=== PATIENT | male | born 1995 | race Caucasian/White ===

== ENCOUNTER 2022-01-22 18:08 | Emergency (ER) | payer BC ==
[~2022-01-22] VITALS: Ht 172.7 cm; Wt 63.5 kg
[2022-01-22] MEDS ORDERED: SODIUM CHLORIDE 0.9% 1000ML 1,000 ML IV SCH (18:45)
[2022-01-22] MEDS ORDERED: FAMOTIDINE 20 MG/2 ML VIAL IV STA (18:45)
[2022-01-22] MEDS ORDERED: ONDANSETRON HCL INJ 2MG/ML 2ML 2 MG/ML VIAL IV STA (18:45)
[2022-01-22] MEDS ORDERED: KETOROLAC TROMETHAMINE 30 MG/ML VIAL IV STA (18:46)
[2022-01-22] MEDS ORDERED: KETOROLAC TROMETHAMINE 30 MG/ML VIAL ONE (19:09)
[2022-01-22] MEDS ORDERED: ONDANSETRON HCL INJ 2MG/ML 2ML 2 MG/ML VIAL ONE (19:09)
[2022-01-22] MEDS ORDERED: FAMOTIDINE 20 MG/2 ML VIAL IV ONE (19:09)
[2022-01-22] MEDS ORDERED: SODIUM CHLORIDE 0.9% 1000ML 1,000 ML ONE (19:09)
[2022-01-22] MEDS ORDERED: HALOPERIDOL LACTATE 5 MG/ML VIAL ONE (21:17)
[2022-01-22] MEDS ORDERED: PROMETHAZINE HC25 M1 PO (21:19)
[2022-01-22] MEDS ORDERED: PANTOPRAZOLE SO40 MG PO (21:19)
[2022-01-22] MEDS ORDERED: DICYCLOMINE HCL20 MG PO (21:19)
== END 2022-01-22 21:42 | disposition home or self-care (01) ==
LOC: FSED 18:32 → EDSEX 18:32 → FSED 21:42
DX: R11.2 Nausea with vomiting, unspecified (principal); K29.70 Gastritis, unspecified, without bleeding; R10.30 Lower abdominal pain, unspecified; E11.65 Type 2 diabetes mellitus with hyperglycemia; F12.10 Cannabis abuse, uncomplicated
CPT/HCPCS: 71046; 74177; 80048; 80076; 81003; 85025; 99284; J1630; J1885; J2405; J7030

== ENCOUNTER → 2022-05-02 | Outpatient (CLI) | payer BC ==
[~2022-05-02] MED LIST: DICYCLOMINE HCL20 MG PO; PANTOPRAZOLE SO40 MG PO; PROMETHAZINE HC25 M1 PO
== END ==
LOC: NM 08:49
PROVIDERS: ATTEND Internal Medicine Endocrinology, Diabetes & Metabolism
DX: R11.15 Cyclical vomiting syndrome unrelated to migraine (principal); R11.0 Nausea
CPT/HCPCS: 78264; A9541

== ENCOUNTER 2022-09-19 14:33 | Emergency (ER) | payer BC ==
[~2022-09-19] VITALS: Ht 167.6 cm; Wt 82.2 kg
[2022-09-19] MEDS ORDERED: SODIUM CHLORIDE 0.9% 1000ML 1,000 ML IV STA (15:20)
[2022-09-19] MEDS ORDERED: TRAZODONE HCL50 MG PO (15:22)
[2022-09-19] MEDS ORDERED: SERTRALINE HCL50 MG PO (15:22)
[2022-09-19] MEDS ORDERED: TRESIBA100 UNIT/1 (15:22)
[2022-09-19] MEDS ORDERED: NAUZENE TABLET1 EACH (15:22)
[2022-09-19] MEDS ORDERED: METFORMIN HCL1000 M1 (15:22)
[2022-09-19] MEDS ORDERED: NEURONTIN100 MG PO (15:22)
[2022-09-19] MEDS ORDERED: FAMOTIDINE 20 MG/2 ML VIAL IV STA (15:22)
[2022-09-19] MEDS ORDERED: ONDANSETRON HCL INJ 2MG/ML 2ML 2 MG/ML VIAL IV STA ×2 (15:30→17:48)
[2022-09-19] MEDS ORDERED: FAMOTIDINE 20 MG/2 ML VIAL IV ONE (15:32)
[2022-09-19] MEDS ORDERED: ONDANSETRON HCL INJ 2MG/ML 2ML 2 MG/ML VIAL ONE ×2 (15:32→17:49)
[2022-09-19] MEDS ORDERED: SODIUM CHLORIDE 0.9% 1000ML 1,000 ML ONE (15:32)
[2022-09-19] MEDS ORDERED: GOLYTELY SOLU4000 M1 PO (17:15)
[2022-09-19] MEDS ORDERED: FLEET ENEMA133 ML PR (17:15)
[2022-09-19] MEDS ORDERED: ONDANSETRON ODT4 MG PO (17:36)
[2022-09-19] MEDS ORDERED: Morphine 4mg INJECTION 4 MG/ML INJ IV STA (17:48)
[2022-09-19] MEDS ORDERED: Morphine 4mg INJECTION 4 MG/ML INJ ONE (17:49)
[2022-09-19] MEDS ORDERED: Morphine 4mg INJECTION 4 MG/ML INJ IV PRN (18:00)
== END 2022-09-19 19:15 | disposition home or self-care (01) ==
LOC: FSED 14:58
DX: K56.41 Fecal impaction (principal); E11.65 Type 2 diabetes mellitus with hyperglycemia; F41.9 Anxiety disorder, unspecified; F32.A Depression, unspecified; Z20.822 Contact with and (suspected) exposure to COVID-19
CPT/HCPCS: 74177; 80048; 80076; 80307; 81003; 85025; 96374; 96375; 96376; 99284; J2270; J2405; J7030; U0002

== ENCOUNTER 2023-05-27 15:14 | Inpatient (IN) | payer BC ==
[~2023-05-27] VITALS: Ht 170.2 cm; Wt 86.2 kg
[~2023-05-27 15:14] MED LIST changes: +AMOX TR-K CLV1 EAC2 PO; +FLEET ENEMA133 ML PR; +GOLYTELY SOLU4000 M1 PO; +LISINOPRIL5 MG PO; +MAALOX MAXIMUM355 ML PO; +METFORMIN HCL1000 M1 PO; +NAUZENE TABLET1 EACH; +NEURONTIN100 MG PO; +OMEPRAZOLE20 M1 PO; +ONDANSETRON ODT4 MG PO; +PHENERGAN SUPP25 MG PR; +SERTRALINE HCL50 MG PO; +TRAZODONE HCL50 MG PO; +TRESIBA100 UNIT/1 SC; +TYLENOL325 MG PO; +ULTRAM 50MG50 MG PO
[2023-05-27] MEDS ORDERED: SODIUM CHLORIDE 0.9% 1000ML 1,000 ML IV STA (15:24)
[2023-05-27] MEDS ORDERED: KETOROLAC TROMETHAMINE 30 MG/ML VIAL IV STA (15:24)
[2023-05-27] MEDS ORDERED: ONDANSETRON HCL INJ 2MG/ML 2ML 2 MG/ML VIAL IV ONE (15:30)
[2023-05-27] MEDS ORDERED: FAMOTIDINE 20 MG/2 ML VIAL IV ONE ×2 (15:30→15:46)
[2023-05-27] MEDS ORDERED: PROMETHAZINE 25MG/ NS 50ML (IV) IV ONE (15:45)
[2023-05-27] MEDS ORDERED: PROMETHAZINE HCL (IM) 25 MG/ML VIAL IM ONE (15:46)
[2023-05-27] MEDS ORDERED: KETOROLAC TROMETHAMINE 30 MG/ML VIAL ONE (15:46)
[2023-05-27] MEDS ORDERED: SODIUM CHLORIDE 0.9% 1000ML 1,000 ML ONE (15:46)
[2023-05-27] MEDS ORDERED: DEXTROSE 50% SYRINGE 50 ML IV PRN (16:30)
[2023-05-27] MEDS ORDERED: ENALAPRILAT IV INJ 1.25 MG/ML VIAL IV PRN (16:30)
[2023-05-27] MEDS ORDERED: INSULIN REGULAR, HUMAN 100 UNIT/1 ML IV ONE (16:30)
[2023-05-27] MEDS ORDERED: ZOLPIDEM TARTRATE 5 MG TAB PO PRN (16:30)
[2023-05-27] MEDS ORDERED: DIPHENHYDRAMINE HCL INJ 50 MG/ML VIAL IV PRN (16:30)
[2023-05-27] MEDS ORDERED: CLONIDINE HCL 0.2 MG TAB PO PRN (16:30)
[2023-05-27] MEDS ORDERED: FAMOTIDINE 20 MG/2 ML VIAL IV SCH (17:00)
[2023-05-27 18:06] VITALS: BP 135/94; PULSE 76; RESP 19; TEMP 98.6; O2SAT 99
[2023-05-27] MEDS ORDERED: OMEPRAZOLE20 MG (18:49)
[2023-05-27] MEDS: SODIUM CHLORIDE 0.45% 1,000 ML IV SCH (18:58)
[2023-05-27] MEDS: ENOXAPARIN SOD INJ 40 MG/0.4 ML SYR SC SCH (18:59)
[2023-05-27] MEDS: INSULIN REGULAR, HUMAN 100 UNIT/1 ML SQ SCH ×2 (19:00→21:16)
[2023-05-27 20:00] VITALS: BP 142/94; PULSE 83; RESP 18; TEMP 98.2; O2SAT 100
[2023-05-27 20:42] VITALS: BP 142/94; PULSE 83; RESP 18; TEMP 98.2; O2SAT 83
[2023-05-27 21:00] VITALS: BP 142/94; PULSE 83; RESP 18; TEMP 98.2; O2SAT 100
[2023-05-27 21:59] VITALS: BP 142/94; PULSE 83; RESP 18; TEMP 98.2; O2SAT 100
[2023-05-28] VITALS (7 sets, daily range): BP systolic 112–127; BP diastolic 75–92; PULSE 66–110; RESP 16–20; TEMP 97.3–99.1; O2SAT 98–100
[2023-05-28] MEDS: SODIUM CHLORIDE 0.45% 1,000 ML IV SCH (01:43)
[2023-05-28] MEDS: ACETAMINOPHEN 325 MG TAB PO PRN ×3 (04:10→23:37)
[2023-05-28] MEDS: ONDANSETRON HCL INJ 2MG/ML 2ML 2 MG/ML VIAL IV PRN ×3 (05:44→23:38)
[2023-05-28 06:52] LABS: BASOPHILS % 0.4 % (0.0-1.0); EOSINOPHILS # (AUTO) 0.1 (0.0-0.4); EOSINOPHILS % 1.1 % (0.0-6.0); HEMATOCRIT 42.9 % (38.2-49.6); HEMOGLOBIN 15.2 g/dL (14.0-18.0); LYMPHOCYTES # (AUTO) 2.2 (1.0-3.2); LYMPHOCYTES % 21.1 % (18.0-39.1); MEAN CORPUSCULAR HEMOGLOBIN 30.6 pg (28-32); MEAN CORPUSCULAR HGB CONC 35.4 g/dL (31-35); MEAN CORPUSCULAR VOLUME 86.5 fL (81-99); MONOCYTES # (AUTO) 0.8 (0.2-0.8); MONOCYTES % 8.1 % (4.4-11.3); NEUTROPHILS # (AUTO) 7.1 (2.1-6.9); NEUTROPHILS % 68.9 % (38.7-80.0); PLATELET COUNT 239 x10e3/uL (140-360); RED BLOOD COUNT 4.96 x10e6/uL (4.3-5.7); RED CELL DISTRIBUTION WIDTH 12.2 % (11.7-14.4); WHITE BLOOD COUNT 10.26 x10e3/uL (4.8-10.8)
[2023-05-28 07:21] LABS: ANION GAP 17.5 mmol/L (8-16); CALCIUM 8.8 mg/dL (8.4-10.2); CREATININE, SERUM 0.75 mg/dL (0.72-1.25); POTASSIUM 3.5 mmol/L (3.5-5.1)
[2023-05-28] MEDS: INSULIN REGULAR, HUMAN 100 UNIT/1 ML SQ SCH (07:30)
[2023-05-28] MEDS ORDERED: ACETAMINOPHEN 325 MG TAB PO PRN (07:45)
[2023-05-28] MEDS ORDERED: DEXTROSE 50% SYRINGE 50 ML IV PRN (07:45)
[2023-05-28] MEDS ORDERED: IOPAMIDOL 370 MG/ML 100 ML INFUS..BTL INJ ONE (09:12)
[2023-05-28] MEDS ORDERED: SODIUM CHLORIDE 0.9% 100 ML ONE (09:12)
[2023-05-28] MEDS: SERTRALINE HCL 50 MG TAB PO SCH (09:13)
[2023-05-28] MEDS: LISINOPRIL 2.5 MG TAB PO SCH (09:14)
[2023-05-28] MEDS: PROMETHAZINE 12.5MG/ NACL 0.9% 12.5 MG/50 ML BAG IV PRN ×2 (09:14→21:12)
[2023-05-28] MEDS: DICYCLOMINE HCL 20 MG TAB PO SCH ×2 (12:37→17:36)
[2023-05-28] MEDS: METOCLOPRAMIDE HCL 10 MG TAB PO SCH ×3 (12:37→21:10)
[2023-05-28] MEDS: INSULIN LISPRO 100 UNIT/1 ML 3ML VIAL SQ SCH ×5 (12:39→21:00)
[2023-05-28] MEDS: ENOXAPARIN SOD INJ 40 MG/0.4 ML SYR SC SCH (17:36)
[2023-05-28] MEDS ORDERED: INSULIN GLARGINE 100 UNITS/ML VIAL SQ SCH (21:00)
[2023-05-28] MEDS: GABAPENTIN 100 MG CAP PO SCH (21:10)
[2023-05-28] MEDS: TRAMADOL HCL 50 MG TAB PO PRN (21:29)
[2023-05-29] VITALS (7 sets, daily range): BP systolic 112–150; BP diastolic 71–107; PULSE 74–93; RESP 18–20; TEMP 97.2–98.4; O2SAT 98–100
[2023-05-29] MEDS: ONDANSETRON HCL INJ 2MG/ML 2ML 2 MG/ML VIAL IV PRN ×2 (06:30→20:31)
[2023-05-29] MEDS: TRAMADOL HCL 50 MG TAB PO PRN ×2 (06:30→20:30)
[2023-05-29] MEDS ORDERED: KCL 40MEQ/0.9% SOD CHL 1,000 ML IV ONE (08:30)
[2023-05-29] MEDS: LISINOPRIL 2.5 MG TAB PO SCH (08:54)
[2023-05-29] MEDS: SERTRALINE HCL 50 MG TAB PO SCH (08:54)
[2023-05-29] MEDS: METOCLOPRAMIDE HCL 10 MG/2ML VIAL IV SCH ×3 (08:54→16:46)
[2023-05-29] MEDS: INSULIN LISPRO 100 UNIT/1 ML 3ML VIAL SQ SCH ×7 (08:59→22:04)
[2023-05-29] MEDS ORDERED: NICOTINE 21 MG/EA PATCH TOP SCH (09:00)
[2023-05-29] MEDS ORDERED: LIDOCAINE HCL 2% LOCAL INJ 5 ML SDV VIAL INJ ONE (13:02)
[2023-05-29] MEDS ORDERED: DEXMEDETOMIDINE HCL 200 MCG/2 ML VIAL ONE (13:02)
[2023-05-29] MEDS ORDERED: PROPOFOL IV EMULSION 10 MG/ML 50 ML VIAL IV ONE (13:02)
[2023-05-29] MEDS ORDERED: MIDAZOLAM HCL 2 MG/2 ML VIAL ONE (13:08)
[2023-05-29] MEDS ORDERED: FENTANYL CITRATE/PF 100MCG/2 ML INJ ONE (13:08)
[2023-05-29 16:22] LABS: ANION GAP 14.8 mmol/L (8-16); CALCIUM 9.1 mg/dL (8.4-10.2); CREATININE, SERUM 0.87 mg/dL (0.72-1.25); POTASSIUM 3.8 mmol/L (3.5-5.1)
[2023-05-29] MEDS: ENOXAPARIN SOD INJ 40 MG/0.4 ML SYR SC SCH (16:46)
[2023-05-29 16:54] LABS: FREE T4 (FREE THYROXINE) 1.31 ng/dL (0.8-1.8); THYROID STIMULATING HORMONE 1.368 uIU/mL (0.350-4.940)
[2023-05-29] MEDS: GABAPENTIN 100 MG CAP PO SCH (20:30)
[2023-05-29] MEDS ORDERED: INSULIN GLARGINE 100 UNITS/ML VIAL SQ SCH (21:00)
[2023-05-30] VITALS (7 sets, daily range): BP systolic 110–150; BP diastolic 67–107; PULSE 66–94; RESP 18; TEMP 98.3–98.9; O2SAT 100
[2023-05-30] MEDS: ONDANSETRON HCL INJ 2MG/ML 2ML 2 MG/ML VIAL IV PRN ×3 (05:13→22:22)
[2023-05-30 05:48] LABS: BASOPHILS % 0.5 % (0.0-1.0); EOSINOPHILS # (AUTO) 0.2 (0.0-0.4); EOSINOPHILS % 1.7 % (0.0-6.0); HEMATOCRIT 45.2 % (38.2-49.6); HEMOGLOBIN 16.1 g/dL (14.0-18.0); LYMPHOCYTES # (AUTO) 2.9 (1.0-3.2); LYMPHOCYTES % 32.6 % (18.0-39.1); MEAN CORPUSCULAR HEMOGLOBIN 30.3 pg (28-32); MEAN CORPUSCULAR HGB CONC 35.6 g/dL (31-35); MEAN CORPUSCULAR VOLUME 85.1 fL (81-99); MONOCYTES # (AUTO) 0.5 (0.2-0.8); MONOCYTES % 5.7 % (4.4-11.3); NEUTROPHILS # (AUTO) 5.2 (2.1-6.9); NEUTROPHILS % 59.2 % (38.7-80.0); PLATELET COUNT 265 x10e3/uL (140-360); RED BLOOD COUNT 5.31 x10e6/uL (4.3-5.7); RED CELL DISTRIBUTION WIDTH 12.4 % (11.7-14.4); WHITE BLOOD COUNT 8.73 x10e3/uL (4.8-10.8)
[2023-05-30 06:11] LABS: ANION GAP 15.6 mmol/L (8-16); CALCIUM 9.2 mg/dL (8.4-10.2); CREATININE, SERUM 0.81 mg/dL (0.72-1.25); POTASSIUM 3.6 mmol/L (3.5-5.1)
[2023-05-30 06:42] LABS: MAGNESIUM 1.8 MG/DL (1.3-2.1); PHOSPHORUS 2.9 MG/DL (2.3-4.7)
[2023-05-30] MEDS: LISINOPRIL 2.5 MG TAB PO SCH (09:49)
[2023-05-30] MEDS: SERTRALINE HCL 50 MG TAB PO SCH (09:49)
[2023-05-30] MEDS: SUCRALFATE 1 GM TAB PO SCH ×4 (09:50→20:31)
[2023-05-30] MEDS: METOCLOPRAMIDE HCL 10 MG/2ML VIAL IV SCH ×3 (09:50→17:04)
[2023-05-30] MEDS: INSULIN LISPRO 100 UNIT/1 ML 3ML VIAL SQ SCH ×6 (09:51→20:32)
[2023-05-30] MEDS: ENOXAPARIN SOD INJ 40 MG/0.4 ML SYR SC SCH (17:04)
[2023-05-30] MEDS: PROMETHAZINE 12.5MG/ NACL 0.9% 12.5 MG/50 ML BAG IV PRN (20:18)
[2023-05-30] MEDS: INSULIN GLARGINE 100 UNITS/ML VIAL SQ SCH (20:27)
[2023-05-30] MEDS: GABAPENTIN 100 MG CAP PO SCH (20:31)
[2023-05-30] MEDS: Morphine 4mg INJECTION 4 MG/ML INJ IV PRN (22:22)
[2023-05-31] VITALS (8 sets, daily range): BP systolic 102–144; BP diastolic 68–103; PULSE 62–99; RESP 16–18; TEMP 97.7–98.7; O2SAT 96–100
[2023-05-31] MEDS ORDERED: LACTATED RINGER'S 500 ML IV ONE ×4 (02:45→03:00)
[2023-05-31] MEDS: Morphine 4mg INJECTION 4 MG/ML INJ IV PRN ×2 (03:36→13:57)
[2023-05-31] MEDS: METOCLOPRAMIDE HCL 10 MG/2ML VIAL IV SCH ×3 (05:14→16:50)
[2023-05-31] MEDS ORDERED: ONDANSETRON HCL INJ 2MG/ML 2ML 2 MG/ML VIAL IV PRN (07:00)
[2023-05-31] MEDS: SUCRALFATE 1 GM TAB PO SCH ×4 (07:30→20:27)
[2023-05-31] MEDS: INSULIN LISPRO 100 UNIT/1 ML 3ML VIAL SQ SCH ×7 (07:30→20:42)
[2023-05-31] MEDS: LISINOPRIL 2.5 MG TAB PO SCH (08:53)
[2023-05-31] MEDS: SERTRALINE HCL 50 MG TAB PO SCH (09:00)
[2023-05-31] MEDS ORDERED: KETOROLAC TROMETHAMINE 30 MG/ML VIAL IV PRN (09:30)
[2023-05-31] MEDS ORDERED: KETOROLAC TROMETHAMINE 30 MG/ML VIAL IV ONE (10:00)
[2023-05-31] MEDS ORDERED: SODIUM CHLORIDE 0.9% 250ML 250 ML ONE (16:43)
[2023-05-31] MEDS: ENOXAPARIN SOD INJ 40 MG/0.4 ML SYR SC SCH (16:49)
[2023-05-31] MEDS: GABAPENTIN 100 MG CAP PO SCH (20:27)
[2023-05-31] MEDS: INSULIN GLARGINE 100 UNITS/ML VIAL SQ SCH (20:36)
[2023-06-01 00:26] VITALS: BP 131/84; PULSE 73; RESP 18; TEMP 98.3; O2SAT 100
[2023-06-01 04:00] VITALS: BP 117/76; PULSE 98; RESP 17; TEMP 98.6; O2SAT 99
[2023-06-01] MEDS: METOCLOPRAMIDE HCL 10 MG/2ML VIAL IV SCH ×2 (04:59)
[2023-06-01 06:14] LABS: BASOPHILS % 0.4 % (0.0-1.0); EOSINOPHILS # (AUTO) 0.2 (0.0-0.4); EOSINOPHILS % 2.2 % (0.0-6.0); HEMATOCRIT 43.9 % (38.2-49.6); HEMOGLOBIN 15.6 g/dL (14.0-18.0); LYMPHOCYTES # (AUTO) 3.2 (1.0-3.2); LYMPHOCYTES % 38.7 % (18.0-39.1); MEAN CORPUSCULAR HEMOGLOBIN 31.2 pg (28-32); MEAN CORPUSCULAR HGB CONC 35.5 g/dL (31-35); MEAN CORPUSCULAR VOLUME 87.8 fL (81-99); MONOCYTES # (AUTO) 0.7 (0.2-0.8); NEUTROPHILS # (AUTO) 4.1 (2.1-6.9); NEUTROPHILS % 49.2 % (38.7-80.0); PLATELET COUNT 249 x10e3/uL (140-360); RED CELL DISTRIBUTION WIDTH 12.6 % (11.7-14.4); WHITE BLOOD COUNT 8.25 x10e3/uL (4.8-10.8)
[2023-06-01 06:22] LABS: ANION GAP 13.7 mmol/L (8-16); CALCIUM 10.4 mg/dL (8.4-10.2); CREATININE, SERUM 1.05 mg/dL (0.72-1.25); POTASSIUM 3.7 mmol/L (3.5-5.1)
[2023-06-01 07:57] VITALS: BP 118/74; PULSE 66; RESP 18; TEMP 97.7; O2SAT 98
[2023-06-01] MEDS: INSULIN LISPRO 100 UNIT/1 ML 3ML VIAL SQ SCH ×4 (07:57→11:51)
[2023-06-01 08:00] VITALS: BP 118/74; PULSE 66; RESP 18; TEMP 97.7; O2SAT 98
[2023-06-01] MEDS: SUCRALFATE 1 GM TAB PO SCH ×2 (08:01→11:52)
[2023-06-01] MEDS: LISINOPRIL 2.5 MG TAB PO SCH (08:02)
[2023-06-01] MEDS: SERTRALINE HCL 50 MG TAB PO SCH (08:02)
[2023-06-01 08:18] VITALS: BP 118/74; PULSE 66; RESP 18; TEMP 97.7; O2SAT 98
[2023-06-01 11:51] VITALS: BP 117/77; PULSE 90; RESP 19; TEMP 97.7; O2SAT 100
== END 2023-06-01 13:20 | disposition home or self-care (01) | DRG 74 ==
LOC: FSED 15:19 → ERHOLD 16:23 → MED/SURG2 18:01 → OBSVTOIN 05-29 13:50
PROVIDERS: ADMIT Internal Medicine; ATTEND Internal Medicine
PROC: 0DB68ZX Excision of Stomach, Via Natural or Artificial Opening Endoscopic, Diagnostic (ICD-10-PCS; principal; 2023-05-29 14:04)
DX: E10.43 Type 1 diabetes mellitus with diabetic autonomic (poly)neuropathy (principal); E10.10 Type 1 diabetes mellitus with ketoacidosis without coma; K31.84 Gastroparesis; E10.65 Type 1 diabetes mellitus with hyperglycemia; Z79.4 Long term (current) use of insulin; E86.0 Dehydration; K21.9 Gastro-esophageal reflux disease without esophagitis; K29.50 Unspecified chronic gastritis without bleeding; K25.9 Gastric ulcer, unspecified as acute or chronic, without hemorrhage or perforation; K20.90 Esophagitis, unspecified without bleeding; K44.9 Diaphragmatic hernia without obstruction or gangrene; I10 Essential (primary) hypertension; F17.200 Nicotine dependence, unspecified, uncomplicated; K82.8 Other specified diseases of gallbladder; Z79.84 Long term (current) use of oral hypoglycemic drugs; R63.4 Abnormal weight loss; Z68.28 Body mass index [BMI] 28.0-28.9, adult; F32.A Depression, unspecified; Z79.899 Other long term (current) drug therapy
CPT/HCPCS: 0223U; 36415; 43239; 74022; 74177; 78227; 80048; 81003; 82607; 82948; 83036; 83518; 83735; 84100; 84439; 84443; 85025; 87400; 88305; 88342; 96361; 96374; 96376; 99284; A9537; G0378; J1200; J1650; J1815; J1885; J2001; J2250; J2270; J2405; J2550; J2765; J7030; J7050; J7120; Q9967

== ENCOUNTER 2023-11-30 22:35 | Inpatient (IN) | payer BC ==
[~2023-11-30] VITALS: Ht 170.2 cm; Wt 86.2 kg
[~2023-11-30 22:35] MED LIST changes: +OMEPRAZOLE20 MG; +humalog SC
[2023-11-30] MEDS ORDERED: PROMETHAZINE HCL (IM) 25 MG/ML VIAL IM ONE (23:00)
[2023-11-30] MEDS: KETOROLAC TROMETHAMINE 30 MG/ML VIAL IV ONE (23:46)
[2023-11-30] MEDS: FAMOTIDINE 20 MG/2 ML VIAL IV ONE (23:46)
[2023-11-30] MEDS: PROMETHAZINE 25MG/ NS 50ML (IV) IV ONE (23:47)
[2023-11-30] MEDS: DIPHENHYDRAMINE HCL INJ 50 MG/ML VIAL IV ONE (23:52)
[2023-11-30] MEDS: ONDANSETRON HCL INJ 2MG/ML 2ML 2 MG/ML VIAL IV ONE (23:52)
[2023-11-30] MEDS: LACTATED RINGER'S 1,000 ML INJ ONE ×2 (23:52)
[2023-12-01] VITALS (10 sets, daily range): BP systolic 117–178; BP diastolic 80–109; PULSE 78–102; RESP 18; TEMP 98.1–99; O2SAT 98–100
[2023-12-01] MEDS ORDERED: OMEPRAZOLE40 MG PO (00:29)
[2023-12-01] MEDS ORDERED: MAGNESIUM CITR296 ML PO (00:30)
[2023-12-01] MEDS ORDERED: FLEET PEDIA-LAX66 ML RC (00:30)
[2023-12-01] MEDS ORDERED: DEXTROSE 50% SYRINGE 50 ML IV PRN (02:15)
[2023-12-01] MEDS ORDERED: DIPHENHYDRAMINE HCL INJ 50 MG/ML VIAL IV PRN (02:15)
[2023-12-01] MEDS ORDERED: PROMETHAZINE HCL (IM) 25 MG/ML VIAL IM ONE (02:42)
[2023-12-01] MEDS: PROMETHAZINE 25MG/ NS 50ML (IV) IV PRN ×2 (02:46→15:30)
[2023-12-01] MEDS: SODIUM CHLORIDE 0.9% 1000ML 1,000 ML IV SCH (02:46)
[2023-12-01] MEDS: HALOPERIDOL LACTATE 5 MG/ML VIAL IV ONE (05:40)
[2023-12-01] MEDS: ONDANSETRON HCL 4 MG ORAL DISINTEGRATING TAB PO SCH (05:46)
[2023-12-01] MEDS: FAMOTIDINE 20 MG/2 ML VIAL IV SCH (08:14)
[2023-12-01] MEDS ORDERED: ONDANSETRON HCL INJ 2MG/ML 2ML 2 MG/ML VIAL ONE (11:02)
[2023-12-01] MEDS ORDERED: ACETAMINOPHEN 325 MG TAB PO PRN (11:15)
[2023-12-01] MEDS: METOPROLOL TARTRATE INJ 1 MG/ML VIAL IV PRN (11:37)
[2023-12-01] MEDS: DRONABINOL 2.5MG PO SCH (16:55)
[2023-12-01] MEDS: METOCLOPRAMIDE HCL 10 MG/2ML VIAL IV ONE (21:55)
[2023-12-01] MEDS: METOCLOPRAMIDE HCL 10 MG/2ML VIAL IV SCH (23:43)
[2023-12-02 03:17] VITALS: BP 149/97; PULSE 80; RESP 18; TEMP 99.2; O2SAT 100
[2023-12-02 06:35] LABS: BASOPHILS % 0.2 % (0.0-1.0); EOSINOPHILS # (AUTO) 0.1 (0.0-0.4); EOSINOPHILS % 0.6 % (0.0-6.0); HEMATOCRIT 39.6 % (38.2-49.6); HEMOGLOBIN 13.6 g/dL (14.0-18.0); LYMPHOCYTES # (AUTO) 2.1 (1.0-3.2); LYMPHOCYTES % 25.7 % (18.0-39.1); MEAN CORPUSCULAR HEMOGLOBIN 30.9 pg (28-32); MEAN CORPUSCULAR HGB CONC 34.3 g/dL (31-35); MONOCYTES # (AUTO) 0.6 (0.2-0.8); MONOCYTES % 7.3 % (4.4-11.3); NEUTROPHILS # (AUTO) 5.4 (2.1-6.9); PLATELET COUNT 230 x10e3/uL (140-360); RED CELL DISTRIBUTION WIDTH 13.3 % (11.7-14.4); WHITE BLOOD COUNT 8.18 x10e3/uL (4.8-10.8)
[2023-12-02 06:53] VITALS: BP 138/88; PULSE 72; RESP 18; TEMP 98.9; O2SAT 99
[2023-12-02 06:58] LABS: CHOL/HDL RATIO 3.8 (3.9-4.7); MAGNESIUM 1.5 MG/DL (1.3-2.1)
[2023-12-02] MEDS: ONDANSETRON HCL INJ 2MG/ML 2ML 2 MG/ML VIAL IV PRN (07:52)
[2023-12-02 08:38] LABS: ANION GAP 15.9 mmol/L (8-16); CALCIUM 8.8 mg/dL (8.4-10.2); CREATININE, SERUM 0.78 mg/dL (0.72-1.25); POTASSIUM 3.9 mmol/L (3.5-5.1)
[2023-12-02] MEDS: MAGNESIUM/ALUMINUM/SIMETHICONE 30 ML UDC PO PRN (09:16)
[2023-12-02] MEDS: KETOROLAC TROMETHAMINE 30 MG/ML VIAL IV PRN (09:16)
[2023-12-02 11:03] VITALS: BP 138/88; PULSE 72; RESP 18; TEMP 98.9; O2SAT 99
[2023-12-02 12:00] VITALS: BP 160/98; PULSE 77; RESP 22; TEMP 98.9; O2SAT 96
[2023-12-02] MEDS: CHLORDIAZEPOXIDE/CLIDINIUM 1 CAP PO ONE (16:30)
[2023-12-02 17:10] VITALS: BP 143/95; PULSE 95; RESP 14; TEMP 98.2; O2SAT 99
[2023-12-02 20:00] VITALS: BP 149/92; PULSE 77; RESP 20; TEMP 98.9; O2SAT 100
[2023-12-02] MEDS ORDERED: DEXTROSE 50% SYRINGE 50 ML IV PRN (22:00)
[2023-12-02] MEDS: SOD PHOSPHATE/SOD BIPHOSPHATE ENEMA 132 ML BTL PR PRN (22:55)
[2023-12-02] MEDS: MAGNESIUM SULF 1GRAM/DEXTROSE 100 ML IV ONE (22:56)
[2023-12-02] MEDS: CHLORDIAZEPOXIDE/CLIDINIUM 1 CAP PO SCH (22:56)
[2023-12-03] VITALS: BP 137/92; PULSE 77; RESP 21; TEMP 99.3; O2SAT 100
[2023-12-03] MEDS ORDERED: METOCLOPRAMIDE HCL 10 MG/2ML VIAL IV SCH
[2023-12-03] MEDS: MAGNESIUM SULFATE 2GM/50ML 50 ML IV ONE (00:10)
[2023-12-03 04:00] VITALS: BP 123/68; PULSE 75; RESP 20; TEMP 99.2; O2SAT 100
[2023-12-03 05:22] LABS: BASOPHILS % 0.4 % (0.0-1.0); EOSINOPHILS % 0.5 % (0.0-6.0); HEMATOCRIT 41.4 % (38.2-49.6); HEMOGLOBIN 14.4 g/dL (14.0-18.0); LYMPHOCYTES # (AUTO) 2.2 (1.0-3.2); LYMPHOCYTES % 29.2 % (18.0-39.1); MEAN CORPUSCULAR HEMOGLOBIN 30.8 pg (28-32); MEAN CORPUSCULAR HGB CONC 34.8 g/dL (31-35); MEAN CORPUSCULAR VOLUME 88.5 fL (81-99); MONOCYTES # (AUTO) 0.7 (0.2-0.8); MONOCYTES % 9.4 % (4.4-11.3); NEUTROPHILS # (AUTO) 4.6 (2.1-6.9); PLATELET COUNT 243 x10e3/uL (140-360); RED BLOOD COUNT 4.68 x10e6/uL (4.3-5.7); RED CELL DISTRIBUTION WIDTH 13.4 % (11.7-14.4); WHITE BLOOD COUNT 7.59 x10e3/uL (4.8-10.8)
[2023-12-03 05:57] LABS: ALBUMIN/GLOBULIN RATIO 1.2 (0.8-2.0); ANION GAP 18.4 mmol/L (8-16); CALCIUM 9.1 mg/dL (8.4-10.2); CREATININE, SERUM 0.94 mg/dL (0.72-1.25); TOTAL PROTEIN 7.3 g/dL (6.5-8.1)
[2023-12-03 05:59] LABS: POTASSIUM 3.4 mmol/L (3.5-5.1)
[2023-12-03 07:03] VITALS: BP 148/97; PULSE 90; RESP 18; TEMP 98.9; O2SAT 100
[2023-12-03] MEDS: INSULIN REGULAR, HUMAN 100 UNIT/1 ML SQ SCH (09:47)
[2023-12-03] MEDS ORDERED: ONDANSETRON ODT4 MG PO (10:44)
[2023-12-03] MEDS ORDERED: PANTOPRAZOLE SO40 MG PO (10:44)
[2023-12-03] MEDS ORDERED: LIBRAX CAPSULE1 EACH PO (10:44)
[2023-12-03] MEDS ORDERED: ACETAMINOPHEN325 M1 PO (10:44)
== END 2023-12-03 11:20 | disposition home or self-care (01) | DRG 395 ==
LOC: FSED 22:41 → ERHOLD 12-01 02:06 → MED/SURG3 12-01 03:16 → OBSVTOIN 12-02 22:00
PROVIDERS: ADMIT Internal Medicine; ATTEND Internal Medicine
DX: R11.15 Cyclical vomiting syndrome unrelated to migraine (principal); E10.43 Type 1 diabetes mellitus with diabetic autonomic (poly)neuropathy; E10.40 Type 1 diabetes mellitus with diabetic neuropathy, unspecified; E10.65 Type 1 diabetes mellitus with hyperglycemia; K31.84 Gastroparesis; R10.9 Unspecified abdominal pain; E86.0 Dehydration; E83.42 Hypomagnesemia; F12.10 Cannabis abuse, uncomplicated; K21.9 Gastro-esophageal reflux disease without esophagitis; F41.9 Anxiety disorder, unspecified; F32.A Depression, unspecified; R53.81 Other malaise; R53.1 Weakness; Z11.52 Encounter for screening for COVID-19; Z59.6 Low income; Z83.3 Family history of diabetes mellitus
CPT/HCPCS: 0223U; 36415; 80048; 80053; 80061; 82948; 83690; 83735; 84100; 85025; 99283; G0378; J1200; J1885; J2405; J2470; J2550; J2765; J3475; J7030; Q0162